=== PATIENT | male | born 1995 | race Caucasian/White ===

== ENCOUNTER 2022-01-31 03:44 | Emergency (ER) | payer BC, SELFPAY ==
[2022-01-31 03:44] VITALS: BP 138/75; PULSE 91; RESP 16; TEMP 36.5; O2SAT 100; BMI 23.8
--- NOTE | 2022-01-31 04:06 | CT_ITS ---
STUDY: CT HEAD W/O CONTRAST INJECTION REASON FOR EXAM: Male, 26 years old. paresthesias RADIATION DOSAGE (If Supplied By Facility): CTDIvol = ( 44.99 ) mGy, DLP = ( 796.11 ) mGycm TECHNIQUE: Transaxial CT imaging of the brain was performed without administration of intravenous contrast material. Individualized dose optimization techniques were used for this CT. COMPARISON: No relevant priors. FINDINGS: BRAIN: No acute bleed. No edema. Chang-white matter differentiation is maintained. VENTRICLES AND SULCI: Not dilated. EXTRA-AXIAL: No hemorrhage, fluid collection, or mass. CALVARIUM / SKULL BASE: Unremarkable. FACE/SINUSES: Unremarkable. SOFT TISSUES: Unremarkable. CT/Brain/Head without Contrast IMPRESSION: No acute abnormality. Electronically Signed: La Conteh MD at 4:52 EST ,
--- NOTE | 2022-01-31 04:09 | EDS_ITS ---
HPI History of Present Illness Chief Complaint: Back Informant: patient Narrative Narrative: Patient presents for evaluation of intermittent paresthesia's for the last 2 months. States primarily will occur in his lower extremities from the knee down both sides especially when he has prolonged sitting on the commode or at work. He states he would have paresthesias bilateral shoulder and hands also resolved. He does with chronic intermittent low back pain. Denies trauma. He has intermittent headaches. He has not seen a healthcare provider denies any family history of known multiple sclerosis. He denies any weakness. Denies visual changes. He states recently received health insurance he got tired of the numbness in his legs therefore came to the ED. Currently denies any paresthesias. Denies any past med history. Denies any history of IV drug abuse he states he does recreationally use marijuana. He has not seen a doctor in years. PFSH PFSH Medical History no medical history Home Medications NK 01/31/22 [History Last Taken Unknown] Allergy/AdvReac Type Severity Reaction Status Date / Time No Known Allergies Allergy Verified 01/31/22 03:47 Surgical History no surgical history Social History Smoking Status: Current every day smoker tobacco type: e-cigarettes ROS ROS ED Constitutional Constitutional ED: Denies chills, fever(s) or sweats Eyes Eyes: Denies change in vision ENT ENT ED: Denies dysphagia or sore throat Cardiovascular Cardiovascular: Denies chest pain, leg edema, palpitations or racing heartbeat Respiratory/Chest Respiratory/Chest: Denies cough, dyspnea or dyspnea on exertion Gastrointestinal Gastrointestinal: Denies abdominal pain, diarrhea, nausea or vomiting Genitourinary Genitourinary ED: Denies dysuria, hematuria or urinary frequency Musculoskeletal Musculoskeletal: Denies back pain, extremity pain or neck pain Integumentary Denies rash or wounds Neurologic Neurologic: Reports headache(s) and paresthesias; Denies weakness EXAM Physical Exam Const Vital Signs: 01/31/22 03:44 Temperature 97.7 F L Temperature Source Temporal Pulse Rate 91 Respiratory Rate 16 Blood Pressure 138/75 H Blood Pressure Mean 96 Pulse Ox 100 Oxygen Delivery Method Room Air Positive well nourished and well developed General Appearance ED: well developed and NAD HEENT Reports moist mucous membranes normocephalic and atraumatic Eyes PERRL, EOMs intact bilaterally and conjunctivae normal General Eye ED: Yes normal appearance of both eyes Neck no lymphadenopathy and supple Neck Narrative: No meningismus General: Negative for tenderness Chest Wall Chest: Negative for tenderness Resp normal respiratory effort and normal air movement Effort and Inspection: symmetric chest movement; Negative for respiratory distress Cardio regular rate, regular rhythm and no murmurs Peripheral Pulses: pulses 2+ throughout GI normal to inspection, nondistended, normoactive bowel sounds and non-tender Palpation: Negative for guarding or rebound tenderness present Back/Spine no CVA tenderness and no thoracic nor lumbar tenderness Extremity normal to inspection General Extremety ED: Negative for edema or tenderness General Extremity: Negative for edema Neuro oriented x3, CN's II-XII intact bilaterally and no sensory deficits noted Neuro Narrative: No weakness of upper or lower extremities. No current paresthesias. Sensorium / Orientation: awake and alert Skin no rashes or lesions noted and no wounds MDM MDM MDM Narrative Medical decision making narrative: Patient currently asymptomatic. Intermittent nonspecific paresthesia's in multiple areas mainly extremities. He denies a family history of multiple sclerosis however this is in the differential. Reported headache intermittently with no meningismus. Discussed rule out work-up in the ED. CT brain obtained shows no acute process I checked labs including TSH was all normal. He is reassured. However he will need further evaluation possible work-up as an outpatient. He is given a PCP along with given neurology. He is able ambulate in the department. He has no weakness. All questions were answered. Lab Data Attestation: I reviewed the patient's lab results. Labs: Laboratory Results - last 24 hr 01/31/22 01/31/22 04:20 04:20 WBC 9.7 RBC 4.84 Hgb 14.8 Hct 43.3 MCV 89.5 MCH 30.6 MCHC 34.2 RDW Std Deviation 40.6 RDW Coeff of Nola 12.4 Plt Count 282 MPV 9.0 Immature Gran % (Auto) 0.200 Neut % (Auto) 72.4 H Lymph % (Auto) 22.4 [place] % (Auto) 4.6 Eos % (Auto) 0.2 Baso % (Auto) 0.2 Absolute Neuts (auto) 7.1 Absolute Lymphs (auto) 2.18 Nucleated RBC % 0 Sodium 141 Potassium 4.0 Chloride 109 H Carbon Dioxide 26.0 Anion Gap 6 BUN 15 Creatinine 1.00 Estim Creat Clear Calc 87.97 Est GFR (MDRD) Af Amer 118 Est GFR (MDRD) Non-Af 97 BUN/Creatinine Ratio 15.0 Glucose 99 Calcium 9.0 TSH 0.71 Radiography Diagnostic Testing: Clinical Impression(s) from Imaging Studies Brain CT 01/31/22 04:06 IMPRESSION: No acute abnormality. Electronically Signed: La Conteh MD at 4:52 EST , Discharge Plan Triage Chief Complaint: Back ED Provider: Jostin Carr Dx/Rx/DC Orders Clinical Impression: Paresthesia of both lower extremities, Paresthesia of hand, bilateral, Headache Instructions: ED Paraesthesias Prescriptions: No Action NK Primary Care Provider: Care Physician,No Primary Referrals: Lisa Ndiaye MD [Med Staff - [employer]] - 1 Week Arias Loyd MD [Non-Staff -Ordering Privileges] - 1-2 Weeks NOT,DEFINED [Non-Staff] - Activity Restrictions/Additional Instructions: Negative CT head scan. Basic labs with CBC BMP and TSH are normal. Follow-up with PCP and neurology as an outpatient further work-up as needed. Disposition Disposition: Home, Self Care Discharge Date/Time: 01/31/22 05:18
[2022-01-31 04:27] LABS: Absolute Lymphocyte Count 2.18 X10^3/uL (0.83-4.51); Absolute Neutrophil Count 7.1 X10^3/uL (2.0-7.7); Basophil# 0.02 X10^3/uL; Basophil% 0.2 % (0-1); Eosinophil# 0.02 X10^3/uL; Eosinophils% 0.2 % (0-5); Hematocrit 43.3 % (40-54); Hemoglobin 14.8 g/dL (13.0-16.5); Lymphocyte # 2.18 X10^3/ul (0.83-4.51); Lymphocyte % 22.4 % (19-41); Mean Corp Hgb Conc 34.2 g/dL (32-36); Mean Corpuscular Hgb 30.6 pg (27.0-32.0); Mean Corpuscular Volume 89.5 fL (80-94); Monocyte# 0.45 X10^3/uL; Monocyte% 4.6 % (0-10); NRBC Flagged by Analyzer 0 % (0-5); Neutrophil # 7.05 X10^3/uL (2.7-7.7); Neutrophil % 72.4 % (47-70); Platelet Count 282 K/mm3 (150-450); RBC Distribution Width CV 12.4 % (11.6-14.6); RBC Distribution Width SD 40.6 fl (35.1-43.9); Red Blood Count 4.84 M/mm3 (4.6-6.2); White Blood Count 9.7 K/mm3 (4.4-11.0)
[2022-01-31 05:01] LABS: Anion Gap 6 (5-15); BUN 15 mg/dL (7-18); Chloride 109 mmol/L (98-107); EST Glomerular Filtration Rate 97 mL/min (>60); Est Glom Filt Rate - Afr Amer 118 mL/min (>60); Estimated Creatinine Clearance 87.97 ml/min; Glucose 99 mg/dL (74-106); Sodium Level 141 mmol/L (136-145); Thyroid Stim Hormone (TSH) 0.71 uIU/mL (0.358-3.74)
== END 2022-01-31 05:18 | disposition home or self-care (01) ==
PROVIDERS: Emergency Provider Emergency Medicine; Visit Provider Emergency Medicine
DX: R20.2 Paresthesia of skin (principal); M54.50 Low back pain, unspecified; R51.9 Headache, unspecified; F17.290 Nicotine dependence, other tobacco product, uncomplicated
CPT/HCPCS: 70450; 80048; 84443; 85025; 99283; A4216